=== PATIENT | female | born 1990 | race Caucasian/White ===

== ENCOUNTER 2018-08-02 15:17 | Inpatient (IN) | payer OTHER, MEDICAID ==
[~2018-08-02] VITALS: Ht 162.6 cm; Wt 69.4 kg
[2018-08-02] MEDS ORDERED: SODIUM CHLORIDE 0.9% 1,000 ML IV ONE (16:10)
[2018-08-02] MEDS ORDERED: ONDANSETRON 2MG/ML, 2ML IVPush ONE (16:30)
[2018-08-02] MEDS ORDERED: MORPHINE SULFATE 4 MG/ML, 1ML IVPush PRN (16:30)
[2018-08-02] MEDS ORDERED: SODIUM CHLORIDE FLUSH 10ML SYR IVF ONE (16:30)
[2018-08-02 16:33] LABS: MEAN CORPUSCULAR HEMOGLOBIN 33.7 pg (27.0-34.8); MEAN CORPUSCULAR HGB CONC 34.6 g/dL (32.4-35.8); MEAN CORPUSCULAR VOLUME 97.4 fL (80-100); MEAN PLATELET VOLUME 6.8 fL (7.4-10.4); PLATELET COUNT 257 x10^3/uL (130-400); RED BLOOD COUNT 4.49 x10^6/uL (3.82-5.3); RED CELL DISTRIBUTION WIDTH 13.1 % (9.6-15.2)
[2018-08-02] MEDS ORDERED: MORPHINE SULFATE 4 MG/ML, 1ML ONE (16:35)
[2018-08-02] MEDS ORDERED: ONDANSETRON 2MG/ML, 2ML ONE (16:35)
[2018-08-02 16:46] LABS: ALANINE AMINOTRANSFERASE 22 U/L (12-78); ALBUMIN 2.7 g/dL (3.4-5.0); ANION GAP 6 mmol/L (5-15); CALCIUM 8.1 mg/dL (8.5-10.1); CHLORIDE 108 mmol/L (98-107); CREATININE 0.69 mg/dL (0.55-1.02)
[2018-08-02 16:48] LABS: ALKALINE PHOSPHATASE 65 U/L (45-117); BILIRUBIN,TOTAL 1.4 mg/dL (0.2-1.0); TOTAL PROTEIN 6.2 g/dL (6.4-8.2)
[2018-08-02 16:59] LABS: MICROSCOPIC INDICATED
[2018-08-02 17:00] LABS: CULTURE INDICATED? YES; HCG UR SG 1.025 (1.003-1.030)
[2018-08-02 17:13] LABS: MD YES
[2018-08-02 17:14] LABS: BAND#(MANUAL) 0.55 x10^3/uL; BANDS%(MANUAL) 2 % (0-7); LYMPH#(MANUAL) 2.19 x10^3/uL (1-3.4); LYMPHS% (MANUAL) 8 % (22-44); MONOS#(MANUAL) 0.82 x10^3/uL (0.3-2.7); MONOS% (MANUAL) 3 % (2-9); SEG#(MANUAL) 23.84 x10^3/uL (1.8-6.8); SEGS% (MANUAL) 87 % (42-75)
[2018-08-02 17:15] LABS: <PLATELET ESTIMATE> ADEQUATE; <PLT MORPHOLOGY> NORMAL PLT MORPH; <RBC MORPHOLOGY> NORMAL
[2018-08-02] MEDS ORDERED: CEFTRIAXONE PMX 1GM/50ML 50 ML IV ONE (17:30)
[2018-08-02] MEDS ORDERED: OMNIPAQUE 350 MG/ML, 100ML BOTTLE ONE (17:35)
[2018-08-02] MEDS ORDERED: CEFTRIAXONE PMX 1GM/50ML 50 ML ONE (17:54)
[2018-08-02] MEDS ORDERED: SODIUM CHLORIDE 0.9% 1,000ML IVBOLUS ONE (18:00)
[2018-08-02] MEDS: HEPARIN 5,000 UNITS/ML, 1ML SQ SCH (18:30)
[2018-08-02] MEDS: CEFTRIAXONE PMX 1GM/50ML 50 ML IV SCH (18:30)
[2018-08-02] MEDS ORDERED: BISACODYL 10 MG SUPP PR PRN (18:30)
[2018-08-02] MEDS ORDERED: ONDANSETRON ODT 4 MG PO PRN (18:30)
[2018-08-02] MEDS ORDERED: SODIUM CHLORIDE FLUSH 10ML SYR IVF PRN (18:30)
[2018-08-02] MEDS: KETOROLAC 30 MG/1 ML IV PRN (20:44)
[2018-08-02] MEDS: NS + 20MEQ KCL 1,000 ML IV SCH (20:44)
[2018-08-02 20:53] VITALS: BP 91/60
[2018-08-03 00:52] VITALS: BP 92/56
[2018-08-03] MEDS: MORPHINE SULFATE 4 MG/ML, 1ML IVPush PRN ×2 (01:11→13:28)
[2018-08-03] MEDS: HEPARIN 5,000 UNITS/ML, 1ML SQ SCH ×3 (02:30→17:46)
[2018-08-03] MEDS: NS + 20MEQ KCL 1,000 ML IV SCH ×3 (03:13→17:38)
[2018-08-03 05:05] LABS: BASOPHILS # (AUTO) 0.01 x10^3/uL (0-0.1); BASOPHILS % (AUTO) 0 % (0-1); EOSINOPHILS # (AUTO) 0.02 x10^3/uL (0-0.4); EOSINOPHILS % (AUTO) 0 % (1-7); LYMPHOCYTES # (AUTO) 1.24 x10^3/uL (1-3.4); LYMPHOCYTES % (AUTO) 8 % (22-44); MD NO; MEAN CORPUSCULAR HEMOGLOBIN 33.6 pg (27.0-34.8); MEAN CORPUSCULAR VOLUME 98.9 fL (80-100); MEAN PLATELET VOLUME 7.2 fL (7.4-10.4); MONOCYTES # (AUTO) 0.45 x10^3/uL (0.2-0.8); MONOCYTES % (AUTO) 3 % (2-9); NEUTROPHILS # (AUTO) 14.14 x10^3/uL (1.8-6.8); NEUTROPHILS % (AUTO) 89 % (42-75); PLATELET COUNT 204 x10^3/uL (130-400); RED BLOOD COUNT 3.65 x10^6/uL (3.82-5.3); RED CELL DISTRIBUTION WIDTH 13.3 % (9.6-15.2)
[2018-08-03 05:15] LABS: CHLORIDE 114 mmol/L (98-107)
[2018-08-03 05:29] LABS: ALANINE AMINOTRANSFERASE 39 U/L (12-78); ALBUMIN 2.1 g/dL (3.4-5.0); ALKALINE PHOSPHATASE 78 U/L (45-117); ANION GAP 8 mmol/L (5-15); BILIRUBIN,TOTAL 0.6 mg/dL (0.2-1.0)
[2018-08-03 06:16] VITALS: BP 99/64
[2018-08-03] MEDS: SENNA/DOCUSATE TABLET PO SCH (08:36)
[2018-08-03] MEDS: KETOROLAC 30 MG/1 ML IV PRN ×2 (08:39→17:54)
[2018-08-03] MEDS: ACETAMINOPHEN 325 MG TABLET PO PRN ×3 (08:39→17:41)
[2018-08-03] MEDS: TAMSULOSIN 0.4 MG CAP.ER.24H PO SCH (10:45)
[2018-08-03] MEDS: POLYETHYLENE GLYCOL 17 GM PACKET PO PRN (10:45)
[2018-08-03 13:30] VITALS: BP 97/63
[2018-08-03] MEDS: CEFTRIAXONE PMX 1GM/50ML 50 ML IV SCH (17:42)
[2018-08-03 19:20] VITALS: BP 97/63
[2018-08-03] MEDS ORDERED: CALCIUM CARBONATE 500 MG TAB.CHEW PO PRN (20:00)
[2018-08-04] MEDS: HEPARIN 5,000 UNITS/ML, 1ML SQ SCH ×3 (02:06→18:02)
[2018-08-04 02:20] VITALS: BP 95/59
[2018-08-04] MEDS: KETOROLAC 30 MG/1 ML IV PRN (02:33)
[2018-08-04] MEDS: POLYETHYLENE GLYCOL 17 GM PACKET PO PRN (02:48)
[2018-08-04] MEDS: ACETAMINOPHEN 325 MG TABLET PO PRN ×4 (02:48→23:02)
[2018-08-04] MEDS: NS + 20MEQ KCL 1,000 ML IV SCH ×2 (02:54→10:31)
[2018-08-04 05:32] LABS: ANION GAP 6 mmol/L (5-15); CALCIUM 7.7 mg/dL (8.5-10.1); CHLORIDE 117 mmol/L (98-107); CREATININE 0.32 mg/dL (0.55-1.02)
[2018-08-04 05:44] LABS: BASOPHILS # (AUTO) 0.02 x10^3/uL (0-0.1); BASOPHILS % (AUTO) 0 % (0-1); EOSINOPHILS # (AUTO) 0.02 x10^3/uL (0-0.4); EOSINOPHILS % (AUTO) 0 % (1-7); LYMPHOCYTES # (AUTO) 0.97 x10^3/uL (1-3.4); LYMPHOCYTES % (AUTO) 11 % (22-44); MD NO; MEAN CORPUSCULAR HEMOGLOBIN 34.1 pg (27.0-34.8); MEAN CORPUSCULAR HGB CONC 34.6 g/dL (32.4-35.8); MEAN CORPUSCULAR VOLUME 98.5 fL (80-100); MEAN PLATELET VOLUME 7.2 fL (7.4-10.4); MONOCYTES # (AUTO) 0.36 x10^3/uL (0.2-0.8); MONOCYTES % (AUTO) 4 % (2-9); NEUTROPHILS # (AUTO) 7.23 x10^3/uL (1.8-6.8); NEUTROPHILS % (AUTO) 84 % (42-75); PLATELET COUNT 208 x10^3/uL (130-400); RED BLOOD COUNT 3.23 x10^6/uL (3.82-5.3); RED CELL DISTRIBUTION WIDTH 13.2 % (9.6-15.2)
[2018-08-04 07:41] VITALS: BP 104/71
[2018-08-04] MEDS: SENNA/DOCUSATE TABLET PO SCH (08:23)
[2018-08-04] MEDS: TAMSULOSIN 0.4 MG CAP.ER.24H PO SCH (08:23)
[2018-08-04] MEDS: LACTATED RINGERS 1,000 ML IV SCH ×2 (10:54→20:38)
[2018-08-04 12:57] VITALS: BP 114/79
[2018-08-04] MEDS: SIMETHICONE 80 MG CHEW TAB PO SCH ×3 (13:00→21:00)
[2018-08-04 14:15] VITALS: BP 96/64
[2018-08-04] MEDS: CEFTRIAXONE PMX 1GM/50ML 50 ML IV SCH (18:02)
[2018-08-04 20:13] VITALS: BP 92/62
[2018-08-05 01:59] VITALS: BP 96/67
[2018-08-05] MEDS: HEPARIN 5,000 UNITS/ML, 1ML SQ SCH ×2 (02:30→09:47)
[2018-08-05 05:39] LABS: BASOPHILS # (AUTO) 0.02 x10^3/uL (0-0.1); BASOPHILS % (AUTO) 0 % (0-1); EOSINOPHILS # (AUTO) 0.06 x10^3/uL (0-0.4); EOSINOPHILS % (AUTO) 1 % (1-7); LYMPHOCYTES % (AUTO) 21 % (22-44); MD NO; MEAN CORPUSCULAR HEMOGLOBIN 34.4 pg (27.0-34.8); MEAN CORPUSCULAR VOLUME 98.6 fL (80-100); MONOCYTES # (AUTO) 0.34 x10^3/uL (0.2-0.8); MONOCYTES % (AUTO) 6 % (2-9); NEUTROPHILS # (AUTO) 4.36 x10^3/uL (1.8-6.8); NEUTROPHILS % (AUTO) 72 % (42-75); PLATELET COUNT 243 x10^3/uL (130-400); RED BLOOD COUNT 3.28 x10^6/uL (3.82-5.3); RED CELL DISTRIBUTION WIDTH 13.2 % (9.6-15.2)
[2018-08-05] MEDS: ACETAMINOPHEN 325 MG TABLET PO PRN (06:26)
[2018-08-05] MEDS: LACTATED RINGERS 1,000 ML IV SCH (06:28)
[2018-08-05 06:42] LABS: ANION GAP 10 mmol/L (5-15); CALCIUM 8.3 mg/dL (8.5-10.1); CHLORIDE 111 mmol/L (98-107)
[2018-08-05 06:43] LABS: CREATININE 0.35 mg/dL (0.55-1.02)
[2018-08-05] MEDS: SIMETHICONE 80 MG CHEW TAB PO SCH ×3 (08:00→14:32)
[2018-08-05 08:23] VITALS: BP 97/68
[2018-08-05] MEDS: SENNA/DOCUSATE TABLET PO SCH (08:29)
[2018-08-05] MEDS: TAMSULOSIN 0.4 MG CAP.ER.24H PO SCH (08:29)
[2018-08-05] MEDS ORDERED: MAGNESIUM OXIDE 400 MG TABLET PO SCH (09:00)
[2018-08-05] MEDS ORDERED: ASA/APAP/ CAFFEINE TABLET PO PRN (10:00)
[2018-08-05] MEDS ORDERED: MAGNESIUM SULFATE PMX 2GM/50ML 50 ML IV ONE (10:30)
[2018-08-05] MEDS ORDERED: MAGNESIUM SULF. PMX 20GM/500ML 500 ML IV PRN (11:00)
[2018-08-05 12:28] VITALS: BP 96/65
[2018-08-05] MEDS ORDERED: SIME80TA16 PO (12:47)
[2018-08-05] MEDS ORDERED: SENN1TAB8 PO (12:47)
[2018-08-05] MEDS ORDERED: ACET325T14 PO (12:47)
[2018-08-05] MEDS ORDERED: CEFD300C37 PO (12:47)
[2018-08-05] MEDS ORDERED: CEFDINIR 300 MG CAPSULE PO SCH (21:00)
== END 2018-08-05 15:15 | disposition home or self-care (01) | DRG 872 ==
LOC: ED 18:18 → EDIP 18:21 → 3NE 19:05 → DCLOUNGE 08-05 15:03
PROVIDERS: ADMIT Internal Medicine; ATTEND Internal Medicine
DX: A41.9 Sepsis, unspecified organism (principal); N10 Acute pyelonephritis; E44.0 Moderate protein-calorie malnutrition; K59.00 Constipation, unspecified; N20.0 Calculus of kidney; E87.6 Hypokalemia; F17.210 Nicotine dependence, cigarettes, uncomplicated; Z68.23 Body mass index [BMI] 23.0-23.9, adult
CPT/HCPCS: 36415; 74018; 74177; 76770; 80048; 80053; 81001; 81025; 83605; 83735; 84145; 85025; 87040; 87086; 96361; 96365; 96375; G0378; J0696; J1885; J2405; J3480; Q0162; Q9967; J3475; J7030; J7120